=== PATIENT | male | born 1945 | race Hispanic/Latino ===

== ENCOUNTER 2024-11-09 14:44 | Emergency (ER) | payer MEDICARE, MEDICAID ==
[~2024-11-09] VITALS: Ht 162.6 cm; Wt 67.0 kg
[2024-11-09] VITALS (8 sets, daily range): BP systolic 101–147; BP diastolic 61–104
[2024-11-09] MEDS ORDERED: methylPREDNISolone SODIUM SUCC 125 MG/2 ML SDV IV ONE (15:10)
[2024-11-09] MEDS ORDERED: DiphenhydrAMINE HCL 25 MG CPLT PO ONE (15:10)
[2024-11-09 15:38] LABS: BASO% 0.8 % (0-3); EOS% 4.4 % (0-8); HEMATOCRIT 44.9 % (39.0-50.0); IMMATURE GRANULOCYTES 0.5 % (0.0-5.0); LYMPH% 17.3 % (15-41); MEAN CELL VOLUME 85.7 fL CALC (80.0-100.0); MEAN CORPUSCULAR HGB 28.6 pG CALC (26.0-32.0); MEAN CORPUSCULAR HGB CONC 33.4 g/dL CAL (32.0-36.0); MONO% 9.7 % (2-13); NEUT# 5.21 thou/uL (1.82-7.42); NEUT% 67.3 % (42-76); RED BLOOD COUNT 5.24 mill/uL (4.70-6.10); RED CELL DISTRI WIDTH 14.3 % (11.5-15.5)
[2024-11-09 15:49] LABS: ALBUMIN 4.1 g/dL (3.2-5.0); BILIRUBIN, TOTAL 0.6 mg/dL (0.2-1.3); CREATININE 1.1 mg/dL (0.7-1.3); POTASSIUM 4.5 mmol/l (3.5-5.1); TOTAL PROTEIN 7.5 g/dL (6.3-8.2)
== END 2024-11-09 16:41 | disposition home or self-care (01) ==
LOC: ED 14:44
PROVIDERS: Family Medicine
DX: R06.02 Shortness of breath (principal); R20.8 Other disturbances of skin sensation; T50.905A Adverse effect of unspecified drugs, medicaments and biological substances, initial encounter; K74.60 Unspecified cirrhosis of liver; I11.0 Hypertensive heart disease with heart failure; I50.9 Heart failure, unspecified